=== PATIENT | female | born 1945 | race Hispanic/Latino ===

== ENCOUNTER 2018-02-18 01:24 | Emergency (ER) | payer MEDICARE ==
[~2018-02-18] VITALS: Ht 160 cm; Wt 59.0 kg
--- NOTE | 2018-02-18 02:06 | Diagnostic Imaging Report ---
EXAM: WRIST COMPLETE RIGHT, AP, lateral and oblique INDICATION: Right wrist pain for one week without trauma COMPARISON: None FINDINGS: BONES: No acute fractures. JOINTS: No malalignment. Degenerative changes predominantly at the first metacarpal carpal joint. SOFT TISSUES: Normal IMPRESSION: No evidence of a right wrist fracture. Signed by: Dr. Guerda Reed M.D. on 02/18/2018 2:03 AM
== END 2018-02-18 02:35 | disposition home or self-care (01) ==
LOC: ER 01:24
DX: M25.531 Pain in right wrist (principal); M06.9 Rheumatoid arthritis, unspecified; G89.29 Other chronic pain
CPT/HCPCS: 99283